=== PATIENT | male | born 1985 | race Caucasian/White ===

== ENCOUNTER 2023-09-23 17:35 | Emergency (ER) | payer MEDICARE, SELFPAY ==
[2023-09-23 17:44] VITALS: BP 150/101
[2023-09-23 18:06] LABS: % Basophils 0.5 % (0-2); % Eosinophils 3.4 % (0-6); % Immature Granulocytes 0.6 % (0-0.5); % Lymphocytes 26.2 % (20.5-51.1); % Monocytes 6.7 % (1.7-9.3); % Neutrophils 62.6 % (42.2-75.2); Absolute Basophils 0.1 10^3/uL (0-0.2); Absolute Eosinophils 0.4 10^3/uL (0-0.7); Absolute Immature Granulocytes 0.1 10^3/uL (0-0.05); Absolute Lymphocytes 3.3 10^3/uL (1.2-3.4); Absolute Monocytes 0.8 10^3/uL (0.1-0.6); Absolute Neutrophils 7.8 10^3/uL (1.4-6.5); Hematocrit 41.7 % (39.0-52.0); Hemoglobin 15.1 g/dL (13.0-18.0); Mean Corp Hgb Conc. 36.2 g/dL (33.0-37.0); Mean Corpuscular Hgb 29.3 pg (27.0-31.0); Mean Platelet Volume 10.1 fL (7.4-10.4); Nucleated Red Blood Cells % 0 % (-); Platelet Count 272 10^3/uL (130-400); Red Blood Cell Count 5.15 10^6/uL (4.70-6.10); Red Cell Dist. Width 12.6 % (11.5-14.5); White Blood Cell Count 12.5 10^3/uL (4.8-10.8)
[2023-09-23 18:20] LABS: ALT (SGPT) 37 U/L (0-50); AST (SGOT) 24 U/L (17-59); Albumin 4.6 g/dl (3.5-5.0); Alkaline Phosphatase 68 U/L (38-126); Blood Urea Nitrogen 13 mg/dl (9-20); Calcium 9.8 mg/dl (8.4-10.2); Carbon Dioxide 23 mmol/L (22-30); Chloride 105 mmol/L (98-107); Glucose 95 mg/dl (70-99); Lipase 200 U/L (23-300); Potassium 4.3 mmol/L (3.5-5.1); Sodium 138 mmol/L (135-145); Total Bilirubin 0.6 mg/dl (0.2-1.3); Total Protein 7.4 g/dl (6.3-8.2); eGFR > 60.00
[2023-09-23 18:31] LABS: Troponin I < 0.012 ng/ml
--- NOTE | 2023-09-23 21:11 | ED.GENMED ---
History of Present Illness
General
Chief Complaint: Abdominal Pain
Source: patient
Exam Limitations: none
Time Seen by Provider: 09/23/23 18:34
Nursing documentation reviewed up to this point in time: agreed with
History of Present Illness
History of Present Illness:
37-year-old male with past medical history of hypertension PTSD presenting to the emergency department today for concerns of intermittent epigastric discomfort starting earlier today. Denies nausea vomiting shortness of breath or diaphoresis. No
reported discomfort no radiation of pain no recent trauma surgery immobilization leg swelling.
Past History
Past History
ED Past Medical History: Psychiatric
ED Past Surgical History: Appendectomy
Social History
Tobacco: Smoker
Alcohol: Occasional
Drug: Marijuana
Personal: Single
Living: with family
Employment: Employed
Family History
Family History: Other (Noncontributory )
Review of Systems
Review of Systems
Allergies reviewed?: Yes
All Other Systems: ROS reviewed and negative except as documented in HPI and ROS
Phy Exam
Physical Exam
Physical Exam:
GENERAL: Alert , in no apparent distress
EYE: pupils equal and reactive
NECK: Supple, no significant adenopathy.
ENT: o/p clr, mmm.
CARDIAC: Regular rate and rhythm .
LUNGS: Clear breath sounds bilaterally, no acute respiratory distress, no wheezes/rales/rhonchi
ABDOMEN: Soft, without focal tenderness, no r/g, no cvat
NEUROLOGICAL: Alert and oriented, no focal neuro deficits
SKIN: Warm and dry, skin intact.
MUSCULOSKELETAL: No edema, well perfused.
PSYCH: Normal and appropriate interaction.
Course
Orders/Labs/Results
Orders:
Orders
09/23/23 17:37
ECG [Electrocardiogram (*1)] Urgent
Reason for Study: Chest Pain
EKG- Treatment ONCE
09/23/23 18:00
Complete Blood Count/With Diff Urgent
Comprehensive Metabolic Panel Urgent
Lipase Urgent
Troponin I Urgent
Abnormal Lab Results
09/23/23
18:00
WBC 12.5 H 10^3/uL
(4.8-10.8)
Abs Immat Gran (auto) 0.1 H 10^3/uL
(0-0.05)
Absolute Neuts (auto) 7.8 H 10^3/uL
(1.4-6.5)
Absolute Monos (auto) 0.8 H 10^3/uL
(0.1-0.6)
Immature Gran % 0.6 H %
(0-0.5)
09/23/23 18:00
09/23/23 18:00
Vital Signs
Initial and Last Documented VS:
Initial Vital Signs
Temp Pulse Resp BP Pulse Ox
98.9 F 83 16 150/101 98
09/23/23 17:44 09/23/23 17:44 09/23/23 17:44 09/23/23 17:44 09/23/23 17:44
Last Documented Vital Signs
Temp Pulse Resp BP Pulse Ox
98.9 F 83 16 150/101 98
09/23/23 17:44 09/23/23 17:44 09/23/23 17:44 09/23/23 17:44 09/23/23 17:44
MDM/Problems Addressed
MDM/Problems Addressed:
37-year-old male presenting to the emergency department today with concerns of upper abdominal pain over the past few hours. It is since resolved since arriving to the ER currently asymptomatic during my assessment. No abdominal pain to palpation.
Labs were obtained without acute abnormalities normal lipase no signs of pancreatitis normal liver function test and bilirubin levels negative troponin normal EKG does not appear to be referred pain from any cardiac origin otherwise patient was
given famotidine possibly could be reflux and given strict return precautions advised for close outpatient follow-up.
*Critical Care Note
Total Time (30-74mins, 75-104mins- exclusive of procedures): Not Applicable
ED Attending Note
-
Portions of this chart may have been created with voice recognition software.� Occasional wrong word or��sound alike� substitutions may have occurred due to the inherent limitations of voice recognition software.
Discharge Plan
Departure
Patient Disposition: Home (Routine Discharge)
Date of Disposition: 09/23/23
Time of Disposition: 21:11
Patient with high blood pressure during this ER visit?: No
Condition: Good
Covid-19: Not Applicable
Discharge Problem:
Acute upper abdominal pain
Instructions: Abdominal Pain
Prescriptions:
New
famotidine 20 mg tablet
20 mg PO HS Qty: 14 0RF
No Action
buspirone 10 MG tablet
10 mg DAILY
lurasidone [Latuda] 40 MG tablet
40 mg PO DAILY
Patient Comments:
unsure of dose
Lamictal:
40 mg DAILY
Patient Comments:
unsure of dose
[place] Carbonate
900 mg DAILY
Referrals:
Jass Link, DO [Family Provider] -
Activity Restrictions/Additional Instructions:
You came to the emergency department today with concerns of abdominal pain. You had a reassuring assessment. Please well-closed with the primary care doctor and take famotidine 1-2 times daily. Return for any worsening, new or concerning symptoms.
Interventions
Interventions:
*Risk Screen - Suicide Last Done: 09/23/23 17:44
*General Assessment Last Done: 09/23/23 19:20
*Neglect/Abuse Screening Last Done: 09/23/23 17:44
*ED COVID-19 Vaccine History Last Done: 09/23/23 17:44
*Nursing Disposition Last Done: 09/23/23 21:31
TT-Tfnbwd-Btwqxxngwl Assessment Last Done: 09/23/23 19:20
Discharge Date and Time
Discharge Date/Time: 09/23/23 21:32
Print Language: THAI
== END 2023-09-23 21:32 | disposition home or self-care (01) ==
LOC: EMR 17:35
PROVIDERS: Emergency Medicine; EMERGENCY PHYSICIAN Emergency Medicine; FAMILY PHYSICIAN Family Medicine
DX: R10.10 Upper abdominal pain, unspecified (principal); I10 Essential (primary) hypertension; F43.10 Post-traumatic stress disorder, unspecified; F17.200 Nicotine dependence, unspecified, uncomplicated; Z90.49 Acquired absence of other specified parts of digestive tract
CPT/HCPCS: 99283; 80053; 83690; 84484; 85025; 93005

== ENCOUNTER → 2024-03-22 14:00 | Outpatient (REF) | payer MEDICARE, OTHER, SELFPAY | LOC: RAD 14:00 | PROVIDERS: ATTENDING PHYSICIAN Family Medicine | DX: R13.19 Other dysphagia (principal) | CPT/HCPCS: 76536 ==

== ENCOUNTER 2024-09-29 11:53 | Inpatient (IN) | payer MEDICARE, OTHER, SELFPAY ==
[2024-09-29] VITALS (10 sets, daily range): BP systolic 115–144; BP diastolic 62–104; BMI 40.3
--- NOTE | 2024-09-29 07:48 | ED.GENMED ---
History of Present Illness
<Bekah Vasquez PA-C - Last Filed: 09/29/24 15:30>
General
Chief Complaint: Weakness
Source: patient and family
Exam Limitations: none
Time Seen by Provider: 09/29/24 07:21
History of Present Illness
History of Present Illness:
38yoM with a history of hypertension, PTSD, bipolar disorder presenting for evaluation of multiple complaints. Patient went to bed feeling normal yesterday evening. He woke up around 4:30 in the morning to urinate. He suddenly started to feel
confused and was unsure what he was doing. He then developed a pressure in the left side of his chest which radiated in between his shoulder blades. He continues to have chest pain currently. He also reports 'charley horses' in both of his legs
which make it feel like it is hard for him to ambulate. Additionally, he noticed a sore to the lateral aspect of his tongue and his family notes a 'blood rash' to his face and chest. Patient denies any falls, syncopal episodes, vomiting. He has a
[employer] card for PTSD but denies any alcohol or illicit drug use.
Past History
<Bekah Vasquez PA-C - Last Filed: 09/29/24 15:30>
Past History
ED Past Medical History: Psychiatric
ED Past Surgical History: Appendectomy
Social History
Tobacco: Smoker
Alcohol: Occasional
Drug: Marijuana
Personal: Single
Living: with family
Employment: Employed
Family History
Family History: Other (Noncontributory )
Phy Exam
<Bekah Vasquez PA-C - Last Filed: 09/29/24 15:30>
General Physical Exam
General Presentation: well appearing
General Skin: warm and dry
General Habitus: normal
General Mental: alert
ENT Exam
ENT Exam: normocephalic and other (Left lateral tongue laceration noted without active bleeding)
Additional ENT: No nuchal rigidity
Eye Exam
Eye Exam: PERRL, EOMI and conjunctiva normal
Cardiovascular Exam
Cardiovascular Exam: regular rate/rhythm
Pulmonary Exam
Pulmonary Exam: lungs clear, no respiratory distress, no rales, no crackles, no rhonchi and no wheezing
Neurological Exam
Neurological Exam: alert and no motor deficits
Rekha Coma Scale
Eye Opening: Spontaneous
Verbal Response: Oriented
Motor Response: Obeys Commands
GCS Total Score: 15
Skin Exam
Skin Exam: warm/dry and other (Petechial rash to face and upper chest)
Psychiatric Exam
Psychiatric Exam: normal mood/affect
Course
<Bekah Vasquez PA-C - Last Filed: 09/29/24 15:30>
Orders/Labs/Results
Orders:
Orders
09/29/24 07:46
Alcohol Urgent
Complete Blood Count/With Diff Urgent
Comprehensive Metabolic Panel Urgent
Hermann Urgent
Comment: ADD ON
Magnesium Urgent
Comment: ADD ON
Total CK [Creatine Phosphokinase] Urgent
Urinalysis Reflex To Culture Urgent
Date Specimen was Collected: 09/29/24
Time Specimen was Collected: 07:45
Urine Drug Abuse Screen Urgent
Date Specimen was Collected: 09/29/24
Time Specimen was Collected: 07:45
Urine Microscopic Reflex Cult Urgent
09/29/24 07:47
CT Chest/abd/pelvis Angio W/wo Urgent
Comment:
Reason For Exam: chest pain radiating to back
09/29/24 07:48
Electrocardiogram (*1) Urgent
Reason for Study: Chest Pain
CT Head W/o Iv Contrast Urgent
Comment:
Reason For Exam: AMS
EKG- Treatment ONCE
09/29/24 07:56
Add On- LAB Urgent
Tests Added?: magnesium
0.9% Sodium Chloride 1000 ml [Nss] 1,000 ml IV BOLUS
09/29/24 07:57
Troponin I Urgent
09/29/24 08:23
0.9% Sodium Chloride 1000 ml [Nss] 1,000 ml IV BOLUS
09/29/24 Lunch
Regular
At Your Request: Full Participation
Does patient need a safe tray?: No
09/29/24 10:48
Add On- LAB Urgent
Tests Added?: lithium level
Add On- LAB Urgent
Tests Added?: urine drug screen
09/29/24 11:13
Admit/Transfer Patient As Directed
Co-Sign Provider:
Level of Care: Inpatient admission
Assign to:: Telemetry
Physician / Group: hospitalist-Tom
Diagnosis: possible seizure
Reason for Telemetry: Arrhythmia
Date to Stop Telemetry: 10/02/24
Time to Stop Telemetry: 11:00
Reason for Hospitalization: IVF, neurology eval
Expected length of stay greater than two midnights?: Yes
ELOS- Estimated Length of Stay in days: 3
I certify the patient meets the requirements for IP care: Yes
09/29/24 11:14
PRN Pain Medication Management As Directed
May give lesser potent ordered pain med per pt: Yes
preference::
Protocol:: Medication orders for pain may be administered in a
manner that supports deferring to patient preference
when the pt is:
- Requesting an ordered lesser potent pain medication.
Least to most potent pain medications are defined
as: acetaminophen < NSAID < tramadol < opioids
(morphine, oxycodone, hydromorphone).
- Requesting a lesser dose of the same medication IF
ORDERED.
- Requesting a less intrusive route of administration
if both routes are prescribed by the provider (PO <
IV).
06/28/25 11:16
Code Status As Directed
Resuscitation Status: Full Code
09/29/24 11:49
Add On- LAB STAT!
Tests Added?: alcohol
09/29/24 13:59
Acetaminophen [Tylenol] 650 mg PO Q4HPRN PRN
Bisacodyl [Dulcolax] 10 mg RECTAL [id number] PRN
Docusate W/Senna [Senokot-S] 1 tablet PO BIDPRN PRN
Lidocaine Visc/Maalox/Benadryl [Magic or Miracle Mouthwash] 5 ml PO QIDPRN PRN
Polyethylene Glycol Powder [Miralax] 17 grams PO DAILYPRN PRN
Sterile Water For Inj [Sterile Water For Injection 1000 ml] 1,000 ml Sodium Bicarbonate 150 meq IV 150 mls/hr
09/29/24 13:59
NEUROLOGY CONSULT Routine
Consulting Provider: Sergio Juares
Was physician already notified: Yes
Activity As Directed
Activity Level: Out of Bed-Early Mobility
Vital Signs As Directed
Frequency: Per unit guidelines
Pt Eval And Treat Routine
Activity Level: Out of Bed-Early Mobility
DX Deep Vein Thrombosis Video Routine
09/29/24 18:00
Enoxaparin Sodium [Lovenox] 40 mg SC QPM
09/30/24 06:00
Complete Blood Count/No Diff IN AM
Comprehensive Metabolic Panel IN AM
Creatine Phosphokinase IN AM
Magnesium IN AM
TSH IN AM
10/02/24 11:00
DC Protocol for Telemetry ONCE
Abnormal Lab Results
09/29/24
07:46
WBC 14.2 H 10^3/uL
(4.8-10.8)
RBC 4.57 L 10^6/uL
(4.70-6.10)
Hct 38.1 L %
(39.0-52.0)
Abs Immat Gran (auto) 0.2 H 10^3/uL
(0-0.05)
Absolute Neuts (auto) 11.2 H 10^3/uL
(1.4-6.5)
Absolute Monos (auto) 0.9 H 10^3/uL
(0.1-0.6)
Immature Gran % 1.2 H %
(0-0.5)
Neutrophils % 79.2 H %
(42.2-75.2)
Lymphocytes % 12.1 L %
(20.5-51.1)
Chloride 113 H mmol/L
(98-107)
Glucose 105 H mg/dl
(70-99)
AST 61 H U/L
(17-59)
ALT 53 H U/L
(0-50)
Creatine Kinase 5340 H U/L
(55-170)
Ur Occult Blood Reflex 2+ A
(Negative)
Urine Bacteria (Reflex) Few A
(Negative)
Hermann < 0.2 L mmol/L
(0.6-1.2)
09/29/24 07:46
09/29/24 07:46
Vital Signs
Initial and Last Documented VS:
Initial Vital Signs
Temp Pulse Resp BP Pulse Ox
98.7 F 93 18 129/80 99
09/29/24 05:14 09/29/24 05:14 09/29/24 05:14 09/29/24 05:14 09/29/24 05:14
Last Documented Vital Signs
Temp Pulse Resp BP Pulse Ox
98.6 F 95 20 144/97 100
09/29/24 14:27 09/29/24 14:27 09/29/24 14:27 09/29/24 14:27 09/29/24 14:27
<Phillip Frazier MD - Last Filed: 09/29/24 09:48>
Orders/Labs/Results
Orders:
Orders
09/29/24 07:46
Alcohol Urgent
Complete Blood Count/With Diff Urgent
Comprehensive Metabolic Panel Urgent
Hermann Urgent
Comment: ADD ON
Magnesium Urgent
Comment: ADD ON
Total CK [Creatine Phosphokinase] Urgent
Urinalysis Reflex To Culture Urgent
Date Specimen was Collected: 09/29/24
Time Specimen was Collected: 07:45
Urine Drug Abuse Screen Urgent
Date Specimen was Collected: 09/29/24
Time Specimen was Collected: 07:45
Urine Microscopic Reflex Cult Urgent
09/29/24 07:47
CT Chest/abd/pelvis Angio W/wo Urgent
Comment:
Reason For Exam: chest pain radiating to back
09/29/24 07:48
Electrocardiogram (*1) Urgent
Reason for Study: Chest Pain
CT Head W/o Iv Contrast Urgent
Comment:
Reason For Exam: AMS
EKG- Treatment ONCE
09/29/24 07:56
Add On- LAB Urgent
Tests Added?: magnesium
0.9% Sodium Chloride 1000 ml [Nss] 1,000 ml IV BOLUS
09/29/24 07:57
Troponin I Urgent
09/29/24 08:23
0.9% Sodium Chloride 1000 ml [Nss] 1,000 ml IV BOLUS
09/29/24 Lunch
Regular
At Your Request: Full Participation
Does patient need a safe tray?: No
09/29/24 10:48
Add On- LAB Urgent
Tests Added?: lithium level
Add On- LAB Urgent
Tests Added?: urine drug screen
09/29/24 11:13
Admit/Transfer Patient As Directed
Co-Sign Provider:
Level of Care: Inpatient admission
Assign to:: Telemetry
Physician / Group: hospitalist-Tom
Diagnosis: possible seizure
Reason for Telemetry: Arrhythmia
Date to Stop Telemetry: 10/02/24
Time to Stop Telemetry: 11:00
Reason for Hospitalization: IVF, neurology eval
Expected length of stay greater than two midnights?: Yes
ELOS- Estimated Length of Stay in days: 3
I certify the patient meets the requirements for IP care: Yes
09/29/24 11:14
PRN Pain Medication Management As Directed
May give lesser potent ordered pain med per pt: Yes
preference::
Protocol:: Medication orders for pain may be administered in a
manner that supports deferring to patient preference
when the pt is:
- Requesting an ordered lesser potent pain medication.
Least to most potent pain medications are defined
as: acetaminophen < NSAID < tramadol < opioids
(morphine, oxycodone, hydromorphone).
- Requesting a lesser dose of the same medication IF
ORDERED.
- Requesting a less intrusive route of administration
if both routes are prescribed by the provider (PO <
IV).
09/29/24 11:16
Code Status As Directed
Resuscitation Status: Full Code
09/29/24 11:49
Add On- LAB STAT!
Tests Added?: alcohol
09/29/24 13:59
Acetaminophen [Tylenol] 650 mg PO Q4HPRN PRN
Bisacodyl [Dulcolax] 10 mg RECTAL [id number] PRN
Docusate W/Senna [Senokot-S] 1 tablet PO BIDPRN PRN
Lidocaine Visc/Maalox/Benadryl [Magic or Miracle Mouthwash] 5 ml PO QIDPRN PRN
Polyethylene Glycol Powder [Miralax] 17 grams PO DAILYPRN PRN
Sterile Water For Inj [Sterile Water For Injection 1000 ml] 1,000 ml Sodium Bicarbonate 150 meq IV 150 mls/hr
09/29/24 13:59
NEUROLOGY CONSULT Routine
Consulting Provider: Sergio Juares
Was physician already notified: Yes
Activity As Directed
Activity Level: Out of Bed-Early Mobility
Vital Signs As Directed
Frequency: Per unit guidelines
Pt Eval And Treat Routine
Activity Level: Out of Bed-Early Mobility
DX Deep Vein Thrombosis Video Routine
09/29/24 18:00
Enoxaparin Sodium [Lovenox] 40 mg SC QPM
09/30/24 06:00
Complete Blood Count/No Diff IN AM
Comprehensive Metabolic Panel IN AM
Creatine Phosphokinase IN AM
Magnesium IN AM
TSH IN AM
10/02/24 11:00
DC Protocol for Telemetry ONCE
Abnormal Lab Results
09/29/24
07:46
WBC 14.2 H 10^3/uL
(4.8-10.8)
RBC 4.57 L 10^6/uL
(4.70-6.10)
Hct 38.1 L %
(39.0-52.0)
Abs Immat Gran (auto) 0.2 H 10^3/uL
(0-0.05)
Absolute Neuts (auto) 11.2 H 10^3/uL
(1.4-6.5)
Absolute Monos (auto) 0.9 H 10^3/uL
(0.1-0.6)
Immature Gran % 1.2 H %
(0-0.5)
Neutrophils % 79.2 H %
(42.2-75.2)
Lymphocytes % 12.1 L %
(20.5-51.1)
Chloride 113 H mmol/L
(98-107)
Glucose 105 H mg/dl
(70-99)
AST 61 H U/L
(17-59)
ALT 53 H U/L
(0-50)
Creatine Kinase 5340 H U/L
(55-170)
Ur Occult Blood Reflex 2+ A
(Negative)
Urine Bacteria (Reflex) Few A
(Negative)
Hermann < 0.2 L mmol/L
(0.6-1.2)
09/29/24 07:46
09/29/24 07:46
Vital Signs
Initial and Last Documented VS:
Initial Vital Signs
Temp Pulse Resp BP Pulse Ox
98.7 F 93 18 129/80 99
09/29/24 05:14 09/29/24 05:14 09/29/24 05:14 09/29/24 05:14 09/29/24 05:14
Last Documented Vital Signs
Temp Pulse Resp BP Pulse Ox
98.6 F 95 20 144/97 100
09/29/24 14:27 09/29/24 14:27 09/29/24 14:27 09/29/24 14:27 09/29/24 14:27
<Bekah Vasquez PA-C - Last Filed: 09/29/24 15:30>
MDM/Problems Addressed
Differential Diagnosis Includes:
38yoM here for confusion that started around 4:30am when he got up to urinate. Also c/o chest pain and 'charley horses' in legs. On arrival, he is awake and alert with a GCS of 15. There is a L lateral tongue laceration and a petechial rash to his
face/upper chest. He denies LOC/falls. VSS. Differential diagnosis includes but is not limited to: Seizure, syncope, ACS, arrhythmia, aortic dissection
Initial ED plan: Check cardiac labs, CK, EKG, UA, CT head, and CTA dissection study. IV fluid bolus.
<Bekah Vasquez PA-C - Last Filed: 09/29/24 15:30>
*Pulse Oximetry
SaO2: 96
Oxygen Mode of Delivery: Room air
Patient hypoxic: no (99%)
*EKG
Interpreted by ED Provider?: Yes
EKG Intrepretation Date: 09/29/24
Heart Rate: 65
Rate: normal
Rhythm: sinus
Hornick: normal axis
Interval: normal interval
QRS Pattern: normal QRS
Ischemia: no ischemia
*Critical Care Note
Total Time (30-74mins, 75-104mins- exclusive of procedures): Not Applicable
<Bekah Vasquez PA-C - Last Filed: 09/29/24 15:30>
Update Note
Update Note:
Labs reveal a leukocytosis with a white count of 14.2 as well as a CK over 5000. Renal function preserved. EKG shows normal sinus rhythm and troponin within normal limits. CT head and dissection study are negative. High clinical suspicion for
seizure. No prior history of seizures in the past. Will admit for further evaluation and management.
ED Attending Note
<Bekah Vasquez PA-C - Last Filed: 09/29/24 15:30>
-
Portions of this chart may have been created with voice recognition software.� Occasional wrong word or��sound alike� substitutions may have occurred due to the inherent limitations of voice recognition software.
<Phillip Frazier MD - Last Filed: 09/29/24 09:48>
ED Attending Note
Patient seen and examined by attending physician: Yes
I performed the substantive portion of visit, reviewed & personally made and approve the management plan that is documented in note by myself or WILLIAMS.: Yes
ED Attending Note:
38-year-old male looks well last evening. Got up to go to the bathroom in the middle of the night. [place] lightheaded. Leg cramps while in the bathroom. Went to lie down on the couch. That said he was diaphoretic at that time. He did hear a
thump in the bathroom prior however. No known seizure. Currently complaining of chest pain to the upper back and cramps of both lower extremities. No fever chills photophobia.
On exam patient is nontoxic. Stable vital signs. He does have petechia diffusely of the face upper chest wall and upper back. No head trauma. Neck is supple. Lungs are clear and equal. Abdomen is nontender. He has a small traumatic wound to
the left side of the tongue. Abdomen is soft and nontender. No pulsatile masses. Good distal pulses and color.
Impression. I highly suspect this young gentleman had a seizure. He bit his tongue. He has petechia of the head and upper neck. CT of the head will be ordered. He also has some concerns for dissection with chest pain upper back pain. Cardiac
testing and dissection study will be done. CPK is 5000. Component of rhabdomyolysis. Will clearly need admission. Workup in progress.
0945... Patient and family updated. Patient fully awake alert and oriented. CT head negative per me and per radiology. I do not see anything on CT angiography although being reviewed. Highly suspect seizure with rhabdomyolysis from seizing
tongue bite. Warrants inpatient management. Petechia IR localized to the face and upper chest. Feel this was likely from the seizure. Do not feel he is clinically meningitic.
Discharge Plan
Departure
Patient Disposition: Admit
Date of Disposition: 09/29/24
Time of Disposition: 10:02
Presentation/result/management discussed w/ accepting MD/DO: Hospitalist
Discharge Problem:
Chest pain, Episode of confusion, Rhabdomyolysis
Interventions
Interventions:
*Risk Screen - Suicide Last Done: 09/29/24 05:14
*General Assessment Last Done: 09/29/24 05:14
*Neglect/Abuse Screening Last Done: 09/29/24 10:25
*ED- Fall Risk Assessment Last Done: 09/29/24 10:25
*ED COVID-19 Vaccine History Last Done: 09/29/24 10:25
*Nursing Disposition Last Done: 09/29/24 14:00
ED- Cardiac Assessment Last Done: 09/29/24 09:00
ED- Neurological Assessment Last Done: 09/29/24 09:00
ED- Pulmonary Assessment Last Done: 09/29/24 09:00
Discharge Date and Time
Discharge Date/Time: 09/29/24 14:22
[2024-09-29 07:54] LABS: % Basophils 0.3 % (0-2); % Eosinophils 0.8 % (0-6); % Immature Granulocytes 1.2 % (0-0.5); % Lymphocytes 12.1 % (20.5-51.1); % Monocytes 6.4 % (1.7-9.3); % Neutrophils 79.2 % (42.2-75.2); Absolute Eosinophils 0.1 10^3/uL (0-0.7); Absolute Immature Granulocytes 0.2 10^3/uL (0-0.05); Absolute Lymphocytes 1.7 10^3/uL (1.2-3.4); Absolute Monocytes 0.9 10^3/uL (0.1-0.6); Absolute Neutrophils 11.2 10^3/uL (1.4-6.5); Hematocrit 38.1 % (39.0-52.0); Hemoglobin 13.5 g/dL (13.0-18.0); Mean Corp Hgb Conc. 35.4 g/dL (33.0-37.0); Mean Corpuscular Hgb 29.5 pg (27.0-31.0); Mean Corpuscular Volume 83.4 fL (80.0-94.0); Mean Platelet Volume 10.3 fL (7.4-10.4); Nucleated Red Blood Cells % 0 % (-); Platelet Count 229 10^3/uL (130-400); Red Blood Cell Count 4.57 10^6/uL (4.70-6.10); Red Cell Dist. Width 12.6 % (11.5-14.5); White Blood Cell Count 14.2 10^3/uL (4.8-10.8)
[2024-09-29 07:56] LABS: Urine Albumin Negative (Neg - Trace); Urine Bilirubin Negative (Negative); Urine Character Clear (Clear); Urine Color Yellow; Urine Glucose Negative (Negative); Urine Ketone Negative (Negative); Urine Leukocyte Negative (Negative); Urine Nitrite Negative (Negative); Urine Occult Blood 2+ (Negative); Urine Urobilinogen Negative (Neg - 1+)
[2024-09-29 08:07] LABS: ALT (SGPT) 53 U/L (0-50); AST (SGOT) 61 U/L (17-59); Alkaline Phosphatase 55 U/L (38-126); Blood Urea Nitrogen 12 mg/dl (9-20); Calcium 8.8 mg/dl (8.4-10.2); Carbon Dioxide 22 mmol/L (22-30); Chloride 113 mmol/L (98-107); Estimated Creatinine Clearance > 125 ml/min; Glucose 105 mg/dl (70-99); Sodium 142 mmol/L (135-145); Total Bilirubin 0.5 mg/dl (0.2-1.3); Total Protein 6.5 g/dl (6.3-8.2); eGFR > 60.00
[2024-09-29 08:13] LABS: Magnesium 2.3 mg/dl (1.6-2.3)
[2024-09-29] MEDS: NSS 1000 IV ×2 (08:14→09:00)
[2024-09-29 08:19] LABS: Urine Bacteria Few (Negative); Urine Red Blood Cell 0-2 /HPF (0-2); Urine White Cell 0-2 /HPF (0-5)
[2024-09-29 08:21] LABS: Creatine Phosphokinase 5340 U/L (55-170)
[2024-09-29 08:52] LABS: Troponin I < 0.012 ng/ml
[2024-09-29 11:16] LABS: Lithium < 0.2 mmol/L (0.6-1.2)
--- NOTE | 2024-09-29 11:22 | HPS.HSE ---
Family Physician
-
Family Physician: Jass Link
Chief Complaint
-
Muscle pain, confusion
History of Present Illness
Patient is a 38-year-old male with a history of essential hypertension, PTSD and bipolar disorder on no psychiatric medications who comes in with complaints of being confused, muscle pain, trouble walking. Patient states that he got up in the
middle of the night to use the restroom and found himself to have trouble walking. Right after urination, patient stated he had pain in his left chest and back in the middle of his shoulder blades. His father heard a thud but did not think
anything of it and did not check on him immediately. Pt then wandered to the kitchen and his father found him confused hanging onto the sink. Patient remembers getting up to urinate but does not remember much afterwards. He stated that the
confusion lasted approximately 1/2-hour and family corroborates this. Patient noticed is that he has a bite/laceration on the left side of his tongue, red pinpoint arriola on his face, head, chest and upper shoulders, along with complaining that he
is having difficulty walking because his calves are swollen and hurt.
Workup in the emergency department finds him to have normal head CT, normal CT angiogram of chest/abdomen and pelvis, CPK of 5000, petechiae on his head and chest, and laceration to the left side of the tongue. Working theory is new onset seizure,
patient being admitted.
Medical History
Past Medical History
Past Medical History: Reports Other
Additional Past Medical History:
Essential hypertension
PTSD
Bipolar disorder
Past Surgical History: Reports None
Social History
Tobacco: Former Smoker (Moved from smoking tobacco, to chewing tobacco, to vaping--none of which she does currently--he does use nicotine pouches buccal)
Alcohol: Former (Patient states he has been sober for 3-1/2 years)
Drug: Former User (Patient states that he gave up drugs 8 years ago)
Personal: Single
Living: With Family
Family History
Family History: Other (Father has prediabetes, hyperlipidemia, essential hypertension----mother's side has hypertension, cancer, thyroid issues)
Allergies / Home Medications
Allergies reflects when Allergies were last updated in [facility].
Home Medications with original date entered in [facility]
Allergy/Medication List:
Allergies
Allergy/AdvReac Type Severity Reaction Status Date / Time
azithromycin (From Zithromax) Allergy Severe Hives Verified 12/11/19 13:57
amoxicillin Allergy Rash Verified 12/11/19 13:57
latex Allergy Rash Verified 12/11/19 13:58
Penicillins Allergy Rash Verified 12/11/19 13:57
Home Medications--medication list is not reconciled--patient does not take any of the medications listed below
Lamictal: 40 mg DAILY 02/23/14
[place] Carbonate 900 mg DAILY 02/23/14
buspirone 10 mg tablet 10 mg DAILY 02/23/14
lurasidone 40 mg tablet (Latuda) 40 mg PO DAILY 02/23/14
famotidine 20 mg tablet 20 mg PO HS #14 tabs 09/23/23
I reviewed his medication list with him
He takes metoprolol XL 100 mg daily in the morning
Medical cannabis
Nicotine pouches orally (buccal)
If medication reconciliation has not been performed, why?: Other
If Other, explain: Unknown
Review of Systems
-
History Source: Patient and Family
Constitutional: Reports Fatigue; Denies Fever or Sleep Disturbance
EENT: Reports No Symptoms
Respiratory: Reports No Symptoms; Denies Cough or Trouble Breathing
Cardiac: Reports No Symptoms
Abdomen/GI: Reports No Symptoms; Denies Abdominal Pain, Nausea, Vomiting, Diarrhea or Constipated
: Reports No Symptoms
Musculoskeletal: Reports Muscle Pain and Other (Left anterior chest/muscle and back pain between shoulder blades)
Skin: Reports Rash (On head and neck only)
Neurological: Reports Headache; Denies Dizzy
Endocrine: Reports No Symptoms
Hematologic/Lymphatic: Reports No Symptoms
Psych: Denies Depression or Anxiety
Physical Exam
Vital Signs
Vital Signs
Temp Pulse Resp BP Pulse Ox
98.7 F 63 16 124/70 98
09/29/24 05:14 09/29/24 10:24 09/29/24 07:42 09/29/24 10:24 09/29/24 10:24
Physical Exam
General: Well Developed, Well Nourished, No Apparent Distress and Obese
HEENT: NormoCephalic, Anicteric, Atraumatic and Other (Laceration on left side of the tongue no bleeding)
Respiratory: Clear; No Wheezes, Rales, Rhonchi or Crackles
Cardiac: S1/S2 and Regular Rhythm; No Murmur
GI: Soft, Non Tender, Non Distended and Normal Bowel Sounds
Musculoskeletal: No Clubbing, No Cyanosis, No Edema and Other (Pain to palpation of the calf bilaterally)
Skin: Rash (Petechial rash from shoulders up)
Neuro: Awake, Alert and Nonfocal/grossly intact
Psych: Calm
Laboratory Results
-
09/29/24 07:46
09/29/24 07:46
Laboratory Results
Total Bilirubin 0.5 mg/dl (0.2-1.3) 09/29/24 07:46
AST 61 U/L (17-59) H 09/29/24 07:46
ALT 53 U/L (0-50) H 09/29/24 07:46
Alkaline Phosphatase 55 U/L (38-126) 09/29/24 07:46
Troponin I < 0.012 ng/ml 09/29/24 07:57
Impression/Plan
-
Patient is a 38-year-old male
Presumed new onset seizure--this diagnosis with time in his tongue laceration, confusion lasting approximately half hour, and mild rhabdo--patient has no history of seizures in the past--patient denies any current substance abuse or withdrawing from
any substances--CT head and CT angio of chest abdomen pelvis all within normal limits--ADMIT to telemetry--consult neurology, likely will need EEG although may be negative if not seizing----laboratory studies are essentially negative with the
exception of mildly elevated transaminases and leukocytosis--await urine tox screen, lithium level less than 0.2--consider loading with Keppra
Rhabdomyolysis--doubt traumatic--May be exercise-induced as patient started lifting weights and did back, chest, biceps, triceps this past Tuesday and Tuesday and reportedly was sore after that--potential elevated CPK could also be from
seizing--continue IV fluids with bicarb to alkalinize the urine--trend CPK
Petechial rash--platelet count is normal--possibly from seizing--follow
Tongue laceration--Magic mouthwash
Essential hypertension--continue metoprolol XL 100 mg daily with holding parameters
Posttraumatic stress disorder/bipolar--patient takes medical cannabis
DVT prophylaxis
CODE STATUS--full code
--- NOTE | 2024-09-29 11:22 | CON.NEURO ---
Neuro Assessment/Plan
Assessment
Sudden onset change in mental status. If due to seizure, this semiology would be focal onset with change in consciousness.
Plan
Check EEG
Check MRI of brain
Check urine drug screen
Will need to report to [facility], this was reviewed at length with the patient
Initiate topiramate 25 mg twice a day as the patient is unwilling to restart lamotrigine and the use of levetiracetam would be concerning in a patient with psychiatric past medical history; patient will require titration upward as outpatient
Consider sleep testing as outpatient
Will follow as outpatient
Consultation
Order
Date of Consultation: 09/29/24
Requesting Provider: Hospitalist
Reason for Consult: Change in mental status
Subjective/Objective
Subjective Data
Date of Service: September 29, 2024
Right-Handed
Patient remembers getting out of bed ~0430 with need to use the bathroom. The patient does have some recollection of some events which then took place which included falling to the ground and having difficulty with breathing after falling according
to the patient. The patient however does not recall other aspects including biting his tongue (on the left). The patient was then described as having self-described dizziness and noted to be confused by family members lasting for approximately 30
minutes before return to normal. Patient has not had a prior episode which was similar. There is no recent changes in medical history recently. No recent travel. No known modifying factors.
Of note is that the patient has a prior history of bipolar affective disorder and has been utilizing medical marijuana and in the past has utilized lamotrigine.
Objective Data
Vital Signs
Temp Pulse Resp BP Pulse Ox
37.1 C 63 16 124/70 98
09/29/24 05:14 09/29/24 10:24 09/29/24 07:42 09/29/24 10:24 09/29/24 10:24
Lab Results
09/29/24 07:46
09/29/24 07:46
Sodium 142 mmol/L (135-145) 09/29/24 07:46
Potassium 4.0 mmol/L (3.5-5.1) 09/29/24 07:46
BUN 12 mg/dl (9-20) 09/29/24 07:46
Glucose 105 mg/dl (70-99) H 09/29/24 07:46
Calcium 8.8 mg/dl (8.4-10.2) 09/29/24 07:46
Patient Allergies
azithromycin (From Zithromax) Allergy (Severe, Verified 12/11/19 13:57)
Hives
amoxicillin Allergy (Verified 12/11/19 13:57)
Rash
latex Allergy (Verified 12/11/19 13:58)
Rash
Penicillins Allergy (Verified 12/11/19 13:57)
Rash
Review of Systems
-
History Source: Patient and Family
All other systems: Reviewed and negative
Constitutional: Sleep Disturbance
EENT: Other (left tongue bite); Negative Decreased Vision or Swallowing Difficulty
Respiratory: Trouble Breathing (during event)
Cardiac: Chest Pain
Abdomen/GI: Negative Incontinence of Stool
Genitourinary: Negative Incontinence
Musculoskeletal: Negative Back Pain or Neck Pain
Skin: Rash
Neuro: Dizzy (at time of onset) and Other (gait dysfunction); Negative Headache
Physical Exam
-
General: No Apparent Distress, Obese and Appears Stated Age
Eyes: OU Absent Papilledema, Round OU, [place] Conjunctivae and No Ptosis
HEENT: Anicteric and Moist Mucous Membranes
Neck: Full Range of Motion
Respiratory: No Dyspnea
Cardiac: No JVD
GI: Non-distended
Skin: Other (Blood vessels broken around eyes)
Extremities: No Clubbing, No Cyanosis and No Edema
Psych: Intact Judgement/Insight
Extended Neurological Exam
Mood & Affect: Mood Unremarkable and Affect Unremarkable
Attention Span & Concentration: Awake, Alert, Interactive and No Difficulty with 2 Step Request
Memory: Unremarkable
Tremor: Hand Tremor Absent and Head Tremor Absent
Speech: Quality Unremarkable and Quantity Unremarkable
Cranial Nerve II: Left Eye: Pupillary Reactivity Unremarkable, Pupillary Size Unremarkable and Visual Guerrier Intact
Cranial Nerve II: Right Eye: Pupillary Reactivity Unremarkable, Pupillary Size Unremarkable and Visual Guerrier Intact
Cranial Nerves III, IV, : Extraocular Movement: Extraocular Movement Full in all Directions
Cranial Nerve VII: Facial Symmetry: Normal Facial Symmetry
Cranial Nerve VIII: Hearing: Unremarkable Hearing to Normal Conversational Volume
Cranial Nerves IX, X: Palate Movement: Palate Elevation Symmetric
Cranial Nerve XI: Shoulder Shrug: Unremarkable
Cranial Nerve XII: Tongue Protusion: Midline
Muscle Strength, Overall: Full Throughout
Muscle Bulk & Tone: Bulk Unremarkable and Tone Unremarkable
Pronator Drift: No Drift in Upper Extremities
Deep Tendon Reflexes: Trace Throughout
Touch Sensation: Unremarkable
Coordination: [id number]-munpgy Testing Unremarkable
Babinski Sign: Absent Bilaterally
Data Reviewed
-
CT Head: Report Reviewed
MRI Head: Ordered
EEG: Ordered
Labs: Ordered and Report Reviewed
Reviewed with: Physician, Patient and Family
Old Records: Summarized
Medications
-
Home Medications
�Medication �Instructions �Recorded
Lamictal: 40 mg DAILY 02/23/14
[place] Carbonate 900 mg DAILY 02/23/14
buspirone 10 mg tablet 10 mg DAILY 02/23/14
lurasidone 40 mg tablet (Latuda) 40 mg PO DAILY 02/23/14
famotidine 20 mg tablet 20 mg PO HS #14 tabs 09/23/23
Past History
Past History
ED Past Medical History: HTN, Psychiatric (PTSD, bipolar affective disorder) and Other (Migraine headache, folliculitis)
ED Past Surgical History: Appendectomy
Social History
Tobacco: Smoker
Alcohol: Chronic alcoholic
Drug: Marijuana
Personal: Single
Living: with family
Employment: Employed
Family History
Family History: Other (Reviewed and noncontributory)
[2024-09-29 11:40] LABS: Amphetamines Negative (Negative); Barbiturates Negative (Negative); Benzodiazepines Negative (Negative); Buprenorphine Negative (Negative); Cocaine Negative (Negative); Marijuana Negative (Negative); Methadone Negative (Negative); Methamphetamines Negative (Negative); Opiates Negative (Negative); Phencyclidine Negative (Negative); Tricyclic Antidepressants Negative (Negative)
[2024-09-29 12:32] LABS: Alcohol None Detected
[2024-09-29] MEDS: TOPAMAX 25 MG PO ×2 (14:49→22:40)
[2024-09-29] MEDS: TYLENOL 650 MG PO ×2 (14:49→19:48)
[2024-09-29] MEDS: MAGIC OR MIRACLE MOUTHWASH 5 ML PO ×2 (14:49→19:49)
[2024-09-29] MEDS: SODIUM BICARBONATE 1150 MEQ IV ×2 (14:50→22:38)
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
[2024-09-29] MEDS: LOVENOX 40 MG SC (17:12)
[2024-09-29] MEDS: NICODERM TRANSDERMAL 14 MG TRANSDERM (17:53)
[2024-09-30 03:00] VITALS: BP 133/76
[2024-09-30 06:00] VITALS: BMI 40.5
[2024-09-30 06:48] LABS: Hematocrit 35.7 % (39.0-52.0); Hemoglobin 12.6 g/dL (13.0-18.0); Mean Corp Hgb Conc. 35.3 g/dL (33.0-37.0); Mean Corpuscular Hgb 29.8 pg (27.0-31.0); Mean Corpuscular Volume 84.4 fL (80.0-94.0); Platelet Count 199 10^3/uL (130-400); Red Blood Cell Count 4.23 10^6/uL (4.70-6.10); Red Cell Dist. Width 12.6 % (11.5-14.5); White Blood Cell Count 7.1 10^3/uL (4.8-10.8)
[2024-09-30 07:00] VITALS: BP 130/60
[2024-09-30 07:26] LABS: ALT (SGPT) 49 U/L (0-50); AST (SGOT) 68 U/L (17-59); Albumin 3.6 g/dl (3.5-5.0); Alkaline Phosphatase 48 U/L (38-126); Blood Urea Nitrogen 7 mg/dl (9-20); Calcium 8.7 mg/dl (8.4-10.2); Carbon Dioxide 26 mmol/L (22-30); Chloride 110 mmol/L (98-107); Estimated Creatinine Clearance > 125 ml/min; Glucose 99 mg/dl (70-99); Magnesium 2.2 mg/dl (1.6-2.3); Potassium 3.9 mmol/L (3.5-5.1); Sodium 140 mmol/L (135-145); Total Bilirubin 0.6 mg/dl (0.2-1.3); Total Protein 5.8 g/dl (6.3-8.2); eGFR > 60.00
[2024-09-30 07:33] LABS: Creatine Phosphokinase 5268 U/L (55-170)
[2024-09-30 07:48] LABS: TSH 0.63 uIU/ml (0.47-4.68)
[2024-09-30] MEDS: TOPAMAX 25 MG PO ×2 (08:19→20:08)
[2024-09-30] MEDS: NICODERM TRANSDERMAL 14 MG TRANSDERM (08:19)
[2024-09-30] MEDS: ATIVAN 1 MG PO (08:19)
[2024-09-30] MEDS: SODIUM BICARBONATE 1150 MEQ IV ×3 (08:30→22:47)
[2024-09-30 09:13] VITALS: BP 135/88; PULSE 84; O2SAT 98
--- NOTE | 2024-09-30 09:21 | PTOTSP ---
Patient demonstrates safe and independent mobility, no deficits identified, no skilled physical therapy needs at this time.
[2024-09-30] MEDS: MAGIC OR MIRACLE MOUTHWASH 5 ML PO ×2 (10:57→18:43)
[2024-09-30 11:00] VITALS: BP 130/70
--- NOTE | 2024-09-30 12:02 | W.PN.HOSP.TC ---
Today's Communication/Plan
-
await brain MRI
await EEG
Assessment / Plan
Assessment / Plan
pt is a 38 year old male
Presumed new onset seizure-- tongue laceration, confusion lasting approximately half hour, and mild rhabdo--patient has no history of seizures in the past--patient denies any current substance abuse--CT head and CT angio of chest abdomen pelvis all
within normal limits--apprec neurology, likely will need EEG although may be negative if not seizing, MRI brain/EEG pending---urine tox screen negative, lithium level less than 0.2--neuro started topiramate--pt acting as if he never heard about his
driving limitations....explained again, he is not happy
Rhabdomyolysis--doubt traumatic--May be exercise-induced as patient started lifting weights and did back, chest, biceps, triceps this past Tuesday and Tuesday and reportedly was sore after that--potential elevated CPK could also be from
seizing--continue IV fluids with bicarb to alkalinize the urine--trend CPK, no better--increasing IVF rate--if CPK improved in AM, can d/c
Petechial rash--platelet count is normal--possibly from seizing--follow
Tongue laceration--Magic mouthwash
Essential hypertension--continue metoprolol XL 100 mg daily with holding parameters
Posttraumatic stress disorder/bipolar--patient takes medical cannabis
DVT prophylaxis
CODE STATUS--full code
Anticipated Discharge: Within 24 hours
Subjective/Interval History
-
Date of Service: September 30, 2024
pt feeling much better--walking around the unit
Objective Data
-
Labs:
Laboratory Results
09/30/24
06:38
WBC 7.1
Hgb 12.6 L
Hct 35.7 L
Plt Count 199
Sodium 140
Potassium 3.9
Chloride 110 H
Carbon Dioxide 26
BUN 7 L
Creatinine 0.9
Glucose 99
Calcium 8.7
Total Bilirubin 0.6
AST 68 H
ALT 49
Alkaline Phosphatase 48
Vital Signs:
max temp for 24 hours
09/29/24
15:50
Temp 98.7 F
Vital Signs
Temp Pulse Resp BP Pulse Ox
97.6 F 78 16 130/70 98
09/30/24 11:00 09/30/24 11:00 09/30/24 11:00 09/30/24 11:00 09/30/24 11:00
I&O
09/29/24 09/30/24 10/01/24
06:59 06:59 06:59
Intake Total 2940 / 2940
Balance 2940 / 2940
Review of Systems
-
All other systems: Reviewed and negative
Physical Exam
-
General: Well Developed, Well Nourished, No Apparent Distress and Obese
HEENT: Normocephalic and Atraumatic; Negative Oxygen
Respiratory: Clear to Auscultation; Negative Wheezes or Rhonchi
Cardiac: Regular Rhythm and S1/S2; Negative Murmur
GI: Soft, Nontender, Nondistended and Normal Bowel Sounds
Musculoskeletal: No Clubbing, No Cyanosis, No Edema and Other (no pain to calf palpation)
Skin: Rash (petechial rash still present but diminishing)
Neuro: Awake
[2024-09-30 15:00] VITALS: BP 130/84
[2024-09-30] MEDS: LOVENOX 40 MG SC (17:23)
[2024-09-30 23:05] VITALS: BP 106/56
[2024-09-30] MEDS: SODIUM BICARBONATE IV (23:26)
[2024-10-01] MEDS: SODIUM BICARBONATE 1150 MEQ IV ×2 (05:01→11:26)
[2024-10-01 07:26] LABS: Blood Urea Nitrogen 8 mg/dl (9-20); Calcium 9.2 mg/dl (8.4-10.2); Carbon Dioxide 28 mmol/L (22-30); Chloride 108 mmol/L (98-107); Estimated Creatinine Clearance > 125 ml/min; Glucose 92 mg/dl (70-99); Potassium 4.1 mmol/L (3.5-5.1); Sodium 140 mmol/L (135-145); eGFR > 60.00
[2024-10-01 07:31] LABS: Creatine Phosphokinase 5032 U/L (55-170)
[2024-10-01 07:40] VITALS: BP 116/61
[2024-10-01] MEDS: TOPAMAX 25 MG PO (08:20)
[2024-10-01] MEDS: NICODERM TRANSDERMAL 14 MG TRANSDERM (08:21)
[2024-10-01] MEDS: MAGIC OR MIRACLE MOUTHWASH 5 ML PO (08:22)
--- NOTE | 2024-10-01 14:33 | CM ---
Patient seen at bedside with physicians in [address] [place] [address]. Patient stated that he was planning to go home with his parents and he understood that he could not drive for 6 months. Patient for further testing and plan is for home with no needs for VN at this
time. Patient given IMM and signed form placed on chart. CM will continue to follow for discharge planning needs.
Plan; home with family supports
--- NOTE | 2024-10-01 15:35 | W.PN.HOSP.TC ---
Addendum entered and electronically signed by Patel Cordova MD, Resident 10/02/24 15:48:
Patient's BMI 40.3 which puts pt in the category of morbid obesity without alveolar hypoventilation
patient had elevated CK pointing to Rhabdomyolysis not due to trauma as pt had no trauma
Addendum entered and electronically signed by Phyllis Santos MD 10/01/24 17:11:
I saw and evaluated the patient independently. I reviewed the resident�s note and agree with findings and plan as documented by Dr. Cordova.
GENERAL: well developed, well nourished, male in no apparent distress
HEENT: NC/AT--petechiae improving
HEART: regular rate and rhythm, +S1, +S2
LUNGS : clear to auscultation bilaterally
ABDOM: soft, nontender, nondistended, + bowel sounds
EXT: no cyanosis, clubbing, or edema
NEUROLOGIC: grossly intact
Presumed new onset seizure-- tongue laceration, confusion lasting approximately half hour, and mild rhabdo--patient has no history of seizures in the past--patient denies any current substance abuse--CT head and CT angio of chest/abdomen/pelvis,
brain MRI and EEG all within normal limits--apprec neurology--urine tox screen negative, lithium level less than 0.2--neuro started topiramate but can stop per today's neurologist--OK for d/c
Rhabdomyolysis--doubt traumatic--May be exercise-induced as patient started lifting weights and did back, chest, biceps, triceps this past Tuesday and Tuesday and reportedly was sore after that--potential elevated CPK could also be from
seizing--continue IV fluids with bicarb to alkalinize the urine--trend CPK, no better--will check CPK this with results to PCP
Petechial rash--platelet count is normal--possibly from seizing--follow
Tongue laceration--Magic mouthwash
Essential hypertension--continue metoprolol XL 100 mg daily with holding parameters
Posttraumatic stress disorder/bipolar--patient takes medical cannabis
DVT prophylaxis
CODE STATUS--full code
Original Note:
Today's Communication/Plan
-
restart metoprolol XL 100 mg daily
Assessment / Plan
Assessment / Plan
Mr Lira is a 38 year old male with a history of essential hypertension, PTSD and bipolar disorder on no psychiatric medications who comes in with complaints of syncope, confusion, and muscle pain. His syncope was unwitnessed but he did also
have a tongue laceration. CTAP chest abdomen, pelvis, CT head and brain MRI were normal. Patient awaiting EEG.
#syncope
#confusion resolved
syncope likely seizure due to confusion, lacerations
new onset seizure
urine tox negative
apprec neurology recs
awaiting EEG
topomax
consulted about driving
#Rhabdomyolysis
doubt traumatic
possibly exercise induced as patient started lifting weights a
continue IV fluids with bicarb to alkalinize the urine
trend CPK,
increasing IVF rate
#Petechial rash
platelet count is normal
possibly from seizing
continue to monitor
#Tongue laceration
Magic mouthwash
#Essential hypertension
restart metoprolol XL 100 mg daily with holding parameters
#Posttraumatic stress disorder
#bipolar disorder
patient takes medical cannabis
DVT prophylaxis
CODE STATUS--full code
Anticipated Discharge: 24 - 48 hours
Subjective/Interval History
-
Patient was seen at bedside today. States he is doing ok, did not sleep well. Otherwise no issues, No shortness of breath no chest or abdominal pain. Patient is eager to be discharged.
Date of Service: October 01, 2024
Objective Data
-
Labs:
Laboratory Results
10/01/24
06:18
Sodium 140
Potassium 4.1
Chloride 108 H
Carbon Dioxide 28
BUN 8 L
Creatinine 1.1
Glucose 92
Calcium 9.2
Vital Signs:
Vital Signs
Temp Pulse Resp BP Pulse Ox
97.8 F 64 17 116/61 98
10/01/24 07:40 10/01/24 07:40 10/01/24 07:40 10/01/24 07:40 10/01/24 08:00
I&O
09/30/24 10/01/24 10/02/24
06:59 06:59 06:59
Intake Total 2940 / 2940 5390 / 5390 2400 / 2400
Balance 2940 / 2940 5390 / 5390 2400 / 2400
Review of Systems
-
History Source: Patient
All other systems: Reviewed and negative
Constitutional: Reports No Symptoms; Denies Fever
EENT: Reports No Symptoms Reported
Respiratory: Reports No Symptoms; Denies Cough
Cardiac: Reports No Symptoms; Denies Chest Pain
Abdomen/GI: Reports No Symptoms; Denies Abdominal Pain or Nausea
Genitourinary: Reports No Symptoms; Denies Dysuria
Skin: Reports No Symptoms
Neuro: Reports No Symptoms; Denies Dizzy or Headache
Physical Exam
-
General: Well Developed, Well Nourished and No Apparent Distress
HEENT: Normocephalic and Atraumatic
Respiratory: Clear to Auscultation
Cardiac: Regular Rhythm and S1/S2; Negative Murmur or Rub
GI: Soft, Nontender and Nondistended
Musculoskeletal: No Clubbing, No Cyanosis and No Edema
Skin: Warm and Dry
Neuro: Awake, Alert and Oriented
--- NOTE | 2024-10-01 16:30 | EEG.RPT ---
Electroencephalogram Report
Recording
Date of EE10/01/24
Length of EEG recordin mins
Done with Video Recording: Yes
Patient Status: Inpatient
Recording Conditions: Awake, Drowsy and Asleep
Hyperventilation Performed: Yes
Photic Stimulation Performed: Yes
Report
Clinical Background:�38 year old man with suspected seizure
Introduction: A routine bedside EEG was done using [employer] 10-20 electrode placement protocol.
Background: In the most alert state, the PDR is 11 Hz in frequency with normal amplitude. There is spontaneous variability and reactivity.�
Sleep: Stage I sleep is seen.�
Focal/epileptiform: There were no focal or epileptiform discharges. No clinical or electrographic seizures occurred during this recording.
Hyperventilation: resulted in symmetric slowing
Photic stimulation: resulted in normal driving response. There was no photo myogenic or photoparoxysmal response.�
Impression: Normal EEG
[2024-10-01 16:50] VITALS: BP 153/94
[2024-10-01] MEDS: TOPROL XL 100 MG PO (17:07)
--- NOTE | 2024-10-01 17:16 | W.PN.NEURO.1 ---
Today's Communication / Plan
-
ok to go home, d/c Topamax
Neuro Assessment/Plan
Assessment
agree that this is a reasonable story for a first time seizure. without any concerning EEG or MRI findings, his risk of further seizures would be 20%, particularly in the next several months. spoke with patient and his parents about this risk,
decision to stop Topamax, discussed risks of injury if he were to have another event while exercising/driving. I submitted forms DL-13 and DL-121 indicating first time seizure, normal EEG, advised no action on his drivers license, though we
discussed the decision is ultimately up to the wire wrapping machine operator
Subjective/Objective
Subjective Data
Date of Service: October 01, 2024
No furthers seizures. no h/o seizures or prior LOC, several concussions without LOC. 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 no fhx of epilepsy. he is disabled from PTSD but active in community, drives, volunteers at [employer]
Objective Data
Vital Signs
Temp Pulse Resp BP Pulse Ox
36.2 C 91 18 153/94 98
10/01/24 16:50 10/01/24 16:50 10/01/24 16:50 10/01/24 16:50 10/01/24 16:50
Lab Results
09/30/24 06:38
10/01/24 06:18
Sodium 140 mmol/L (135-145) 10/01/24 06:18
Potassium 4.1 mmol/L (3.5-5.1) 10/01/24 06:18
BUN 8 mg/dl (9-20) L 10/01/24 06:18
Glucose 92 mg/dl (70-99) 10/01/24 06:18
Calcium 9.2 mg/dl (8.4-10.2) 10/01/24 06:18
Ur Buprenorphine Negative (Negative) 09/29/24 07:46
Patient Allergies
amoxicillin Allergy (Verified 10/01/24 15:57)
Rash
azithromycin (From Zithromax) Allergy (Verified 10/01/24 15:57)
Hives
latex Allergy (Verified 12/11/19 13:58)
Rash
Penicillins Allergy (Verified 10/01/24 15:57)
Rash
Physical Exam
-
AAOx3, face symmetric, otherwise nonfocal
--- NOTE | 2024-10-01 17:52 | W.DCSUMMARY ---
Addendum entered and electronically signed by Phyllis Santos MD 10/01/24 19:12:
Read, reviewed, and agree. See same day progress note for additional details. Time spent coordinating care, DC planning, review of DC plan of care with resident, transition of care, review of records in EMR, med rec, consults, notes, d/w
consultants, nursing, family, and CM = 32 minutes
Original Note:
Discharge Summary
Discharge Data
Date of Admission: 09/29/24
Date of Discharge: 10/01/24
-
Pending Results: No
Hospital Course
DISCHARGE DIAGNOSIS:
1. seizure, unknown type
2. Rhabdomyolysis
3. Petechial rash
4. Tongue laceration
Chronic Conditions
1. Essential hypertension
2. Posttraumatic stress disorder
3. Bipolar disorder
Patient is a 38-year-old male with a history of essential hypertension, PTSD and bipolar disorder on no psychiatric medications who comes in with complaints of being confused, muscle pain, trouble walking. Patient states that he got up in the
middle of the night to use the restroom and found himself to have trouble walking. Right after urination, patient stated he had pain in his left chest and back in the middle of his shoulder blades. His father heard a thud but did not think
anything of it and did not check on him immediately. Pt then wandered to the kitchen and his father found him confused hanging onto the sink. He stated that the confusion lasted approximately 1/2-hour and family corroborates this. Patient noticed
is that he has a bite/laceration on the left side of his tongue, along with complaining that he is having difficulty walking because his calves are swollen and hurt.
In the ED CT head abd CTA chest abdomen and pelvis were performed and showed not acute pathologies. Urine toxicology was negative. CPK was elevated in the 5000s
In the hospital, IV fluids hydration was given. Neurology was consulted for suspected first time seizure. Topomax was started. Workup showed normal brain MRI. EEG was not remarkable and topomax was discontinued per neurologist. CPK was trending
slightly down.
Discharge Plan
-
Patient Disposition: Home (Routine Discharge)
Discharge Diagnosis/Procedures: Presumed new onset seizure, rhabdomyolysis presumed exercise-induced versus seizure induced, petechial rash, tongue laceration, essential hypertension, PTSD with bipolar disorder
Condition: Good
Diet: As tolerated and Regular
Activity: No strenuous activity
Additional Activity: Patient is unable to drive until he is seizure-free for 6 months or at which time he is cleared by neurology to drive
Bathing Restrictions: None
Referrals:
Jass Link DO [Family Provider, Family Practice] - in less than 1 week
Prescriptions:
Continued
metoprolol succinate [Toprol XL] 100 mg Tablet Extended Release 24 Hr
100 mg PO DAILY
Held
Medical Marijuana
2 puff inhalation DAILYPRN PRN (Reason: pstd)
Hold Instructions: Discuss with PCP about restarting
Discharge Orders:
Discharge Patient (As Directed); Ordered 10/01/24
Ordered By: Patel Cordova
Discharge Date and Time
Discharge Date/Time: 10/01/24 18:06
Print Language: AFGHAN
--- NOTE | 2024-10-02 09:15 | PN.CDI ---
CDI
- -
CDI:
Physician Documentation Request
Admit Date: 09/29/24 11:53
Dear Doctor Art,
Please review the following and provide your response in the progress notes.
Clinical Indicators:
Height: 6 ft 4 inches
Weight:330
BMI:40.3
RD notes indicate 'morbid obesity'
Please provide an associated diagnosis related to the abnormal BMI:
BMI > or = to 40
Overweight
Obesity:
Due to excess calories
Drug induced
Due to other cause
Severe or morbid obesity:
With alveolar hypoventilation (Obesity hypoventilation syndrome)
Without alveolar hypoventilation
- BMI is not significant
- Other
Use of terms such as suspected, likely, concern for, or probable (associated with a specific diagnosis that is being evaluated, monitored, or treated as if it exists) are acceptable and can be coded in the inpatient setting, when documented at the
time of discharge.
Thank you,
Tess Conroy RN, BSN
CDI Specialist
tiger text
Please use your independent medical judgment in providing your response.
--- NOTE | 2024-10-02 09:17 | PN.CDI ---
CDI
- -
CDI:
Physician Documentation Request
Admit Date: 09/29/24 11:53
Dear Doctor Art,
Hospitalist progress notes state 'Rhabdomyolysis. doubt traumatic. possibly exercise induced as patient started lifting weights'
In an attempt to clarify potentially conflicting documentation, please clarify the type of rhabdomyolysis.
Traumatic (physical)
Non-traumatic (non-physical)
Other
Use of terms such as suspected, likely, concern for, or probable (associated with a specific diagnosis that is being evaluated, monitored, or treated as if it exists) are acceptable and can be coded in the inpatient setting, when documented at the
time of discharge.
Thank you,
Tess Conroy RN, BSN
CDI Specialist
tiger text
Please use your independent medical judgment in providing your response.
== END 2024-10-01 18:06 | disposition home or self-care (01) | DRG 101 ==
LOC: 4 WEST ACU 11:53
PROVIDERS: Physician Assistant; Student in an Organized Health Care Education/Training Program; ADMITTING PHYSICIAN Internal Medicine; CONSULT PHYSICIAN Psychiatry & Neurology Neurology; EMERGENCY PHYSICIAN Emergency Medicine; FAMILY PHYSICIAN Family Medicine
DX: R56.9 Unspecified convulsions (principal); M62.82 Rhabdomyolysis; Z68.41 Body mass index [BMI] 40.0-44.9, adult; R23.3 Spontaneous ecchymoses; S01.512A Laceration without foreign body of oral cavity, initial encounter; I10 Essential (primary) hypertension; F43.10 Post-traumatic stress disorder, unspecified; F31.9 Bipolar disorder, unspecified; F17.200 Nicotine dependence, unspecified, uncomplicated; Z82.49 Family history of ischemic heart disease and other diseases of the circulatory system; Z88.0 Allergy status to penicillin; Z91.040 Latex allergy status; D72.829 Elevated white blood cell count, unspecified; L73.9 Follicular disorder, unspecified; W19.XXXA Unspecified fall, initial encounter; Z79.899 Other long term (current) drug therapy; E66.01 Morbid (severe) obesity due to excess calories
CPT/HCPCS: 70450; 70553; 71275; 74174; 80048; 80053; 80178; 80306; 81003; 81015; 82077; 82550; 83735; 84443; 84484; 85025; 85027; 93005; 95813; 96360; 96361; 97162; 99285; A9575; Q9967

== ENCOUNTER → 2025-02-22 15:17 | Outpatient (REF) | payer MEDICARE, OTHER, SELFPAY | LOC: RAD 15:17 | PROVIDERS: ATTENDING PHYSICIAN Otolaryngology; FAMILY PHYSICIAN Family Medicine | DX: E04.1 Nontoxic single thyroid nodule (principal) | CPT/HCPCS: 76536 ==